=== PATIENT | female | born 1965 | race Two or more races ===

== ENCOUNTER 2023-10-18 08:25 | Outpatient (AMB) | payer OTHER, SELFPAY ==
--- NOTE | 2023-10-18 08:31 | MHC.PC.OV ---
Vital Signs 10/18/23 08:34 Height 4 ft 11 in Weight 152 lb 2 oz BMI 30.7 BP 130/70 Blood Pressure Location Lt brachial Position Sitting Pulse 70 Pulse Source Pulse Oximeter Pulse Oximetry (%) 97 Oxygen Delivery Method Room Air Intake Visit Reasons: est care Intake Note: Patient is a new patient here to establish care for HTN, Asthma. Transferring care from [facility] . Medical records have requested and have not received. 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 Parts: Present Accompanied by: Daughter Allergies bee pollen Allergy (Intermediate, Verified 10/18/23 09:02) Swelling Medication List - Last Reconciled 10/18/23 by Justice Milton MD lisinopril-hydrochlorothiazide 10-12.5 mg 1 tab PO DAILY Tobacco use date assessed: 10/18/23 Dental Screening Dental Screen Date: 10/18/23 Did you have a dental visit in the last 12 months?: No Did you have a dental problem in the last 6 months where you did not have access to dental care?: No Was dental information given to patient?: No HPI est care HPI Details 58 yr old female presents to the office to establish her care here. Patient gives history of asthma and hypertension. Currently she is taking medications for hypertension only. Requesting screening mammogram, Cologuard and Pap smear. Smokes 7 cigarettes a day. Able to function and do activities of daily living. Also complains of intermittent pain in the right leg. Uses Motrin periodically. Pain sx are after an ankle fracture. [facility] Medical History (Updated 10/18/23 @ 09:04 by Justice Milton MD) Tobacco use disorder Essential hypertension Surgical History History of tubal ligation History of ankle surgery Family History Other Substance use disorder Social History Housing: Apartment Alcohol intake: never Patient Tobacco Use Status: Current everyday Tobacco user Tobacco use type: Cigarette Cigarette Packs Per Day: 0.5 Cigarettes Per Day: 7 e-Cigarette/Vaping Use: Never Used Second Hand Smoke Exposure: Yes service: No Current occupational status: unemployed Cognitive needs: Yes (cane, walker) Hearing needs: No Vision needs: Yes (glasses) Questionnaire PHQ-9 Over the last 2 weeks, how often have you been bothered by any of the following problems? 1. Little interest or pleasure in doing things: not at all 2. Feeling down, depressed, or hopeless: several days (currently in treatment) 3. Trouble falling or staying asleep, or sleeping too much: not at all 4. Feeling tired or having little energy: not at all 5. Poor appetite or overeating: not at all 6. Feeling bad about yourself - or that you are a failure or have let yourself or your family down: not at all 7. Trouble concentrating on things, such as reading the newspaper or watching television: not at all 8. Moving or speaking so slowly that other people could have noticed. Or the opposite - being so fidgety or restless that you have been moving around a lot more than usual: not at all 9. Thoughts that you would be better off or of hurting yourself in some way: not at all Total score: 1 Depression Screening Interpretation: Negative Depression Screening Done: Yes Source: Developed by Drs. Paxton Mead, Kim James, Domingo Collins and colleagues, with an educational priya from [employer]. Thrive Questionnaire Date Thrive assessed: 10/18/23 I am a: Patient What is your living situation today?: I have a steady place to live Within the past 12 months, did the food you bought not last and you didn't have the money to get more?: Never true Within the past 12 months, did you worry whether your food would run out before you got money to buy more?: Never true Do you have trouble paying for medicines?: No Do you have trouble getting transportation to medical appointments?: No Do you have trouble paying your heating and electricity bill?: No Do you have trouble taking care of your child, family member or friend?: No Do you have trouble with day-to-day activities such as bathing, preparing meals, shopping, managing finances, etc.?: No Are you currently unemployed and looking for a job?: No Are you interested in more education?: No Currently or been in a relationship where the following occur: no concerns reported THRIVE Score: 0 AUDIT C Alcohol Use Questionnaire (AUDIT-C) 1. How often do you have a drink containing alcohol?: Never Total Score: 0 BETHANY-7 AMB Questionnaire BETHANY-7 Date BETHANY - 7 assessed: 10/18/23 Feeling nervous, anxious, or on edge: 0 = Not at all Not being able to stop or control worryin = Not at all Worrying too much about different things: 0 = Not at all Trouble relaxin = Not at all Being so restless that it is hard to sit still: 0 = Not at all Becoming easily annoyed or irritable: 0 = Not at all Feeling afraid as if something awful might happen: 0 = Not at all Total BETHANY-7 score (0-4 normal; 5-9 mild; 10-14 moderate; 15-21 severe): 0 Source: Developed by Drs. Paxton Mead, Kim James, Domingo Collins and colleagues, with an educational priya from [employer]. Physical exam (Primary Care) Care Plan Goal for BP management: Blood pressure is in range. Continue current medications. BMI result Body Mass Index 30.7 BMI Assessment/Plan discussion: High (1 lb per week weight loss suggested.) BMI High, discussed plan: lifestyle, weight reduction, dietary and physical activity Tobacco/Smoking Status: Tobacco use Status Patient Tobacco Use Status Never used Tobacco 10/18/23 08:32 Depression Screening Interpretation: Negative Currently or been in a relationship where the following occur: no concerns reported Const General: cooperative and healthy appearing Nutritional Appearance: well nourished Orientation/consciousness: patient oriented x3 Limitations: no limitations HENMT Head: Yes normal to inspection Eyes General: appearance normal, both eyes and all related structures Neck Neck: Yes normal visual inspection Chest Chest palpation & inspection: normal palpation of entire chest wall Resp Effort & Inspection: normal respiratory effort Neuro General: patient oriented x3 Assessment and Plan Assessment & Plan (1) Essential hypertension: Code(s): I10 - Essential (primary) hypertension Plan: BP in range. Continue medications at same dosage. BW has been ordered. Will call with the results (2) Screening for malignant neoplasm of cervix: Code(s): Z12.4 - Encounter for screening for malignant neoplasm of cervix (3) Tobacco use disorder: Code(s): F17.200 - Nicotine dependence, unspecified, uncomplicated Orders: Orders Basic Metabolic Panel Today I10 - Essential (primary) hypertension Lipid Panel Today I10 - Essential (primary) hypertension Liver Panel Today I10 - Essential (primary) hypertension Thyroid Stimulating Hormone Today I10 - Essential (primary) hypertension UA and rflx microscopic Today I10 - Essential (primary) hypertension MM screening mammo BI 3 Months Z12.31 - Encounter for screening mammogram for malignant neoplasm of breast Complete Blood Count no Diff Today I10 - Essential (primary) hypertension Referrals PULL OVER Referral Z12.4 - Encounter for screening for malignant neoplasm of cervix Cologuard Test Z12.11 - Encounter for screening for malignant neoplasm of colon Coding Level of Care Code Est Pt Level 4 (91596) Diagnoses Essential hypertension I10 Screening for malignant neoplasm of cervix Z12.4 Tobacco use disorder F17.200
[2023-10-18 08:34] VITALS: BP 130/70; PULSE 70; O2SAT 97; BMI 30.7
== END 2023-10-18 09:01 | disposition home or self-care (01) ==
PROVIDERS: Visit Provider Internal Medicine
DX: I10 Essential (primary) hypertension (principal); Z12.4 Encounter for screening for malignant neoplasm of cervix; F17.200 Nicotine dependence, unspecified, uncomplicated
CPT/HCPCS: 99214

== ENCOUNTER 2023-11-23 12:12 | Outpatient (REF) | payer OTHER, SELFPAY ==
[2023-11-23 12:44] LABS: Hematocrit 41.2 % (37.0-47.0); Mean Corpuscular Hemoglobin 31.3 pg (27.0-33.0); Mean Corpuscular Volume 92.2 fL (80.0-98.0); Mean Platelet Volume 10.4 fL (9.4-12.3); Platelet Count 166 X10*3/uL (160-400); Red Blood Count 4.47 X10*6/uL (4.20-5.50); Red Cell Distribution Width 13.5 % (11.0-16.0); White Blood Count 4.2 X10*3/uL (4.8-10.8)
[2023-11-23 13:19] LABS: Alanine Aminotransferase 17 U/L (0-31); Albumin Level 4.1 g/dL (3.5-5.0); Alkaline Phosphatase 61 U/L (39-117); Anion Gap 10 (12-20); Aspartate Amino Transferase 22 U/L (5-31); Bilirubin Direct 0.3 mg/dL (0.0-0.5); Bilirubin Total 0.7 mg/dL (0.0-1.0); Blood Urea Nitrogen 12 mg/dL (9-16); Calcium 9.7 mg/dL (8.4-10.2); Carbon Dioxide 31 mmol/L (22-29); Chloride 102 mmol/L (96-108); Cholesterol 170 mg/dL (<200); Estimated Glomerular Filt Rate > 60; Glucose Random 91 mg/dL (60-115); HDL Cholesterol 56 mg/dL (>40); LDL Cholesterol Calculated 97 mg/dL (<100); Potassium 4.3 mmol/L (3.3-5.1); Sodium 139 mmol/L (135-145); Total Protein 7.2 g/dL (6.5-8.0); Triglycerides 87 mg/dL (<150)
[2023-11-23 13:34] LABS: Thyroid Stimulating Hormone 1.59 uIU/mL (0.32-4.0)
[2023-11-23 14:08] LABS: Appearance Urine Clear; Color Urine Dark Yellow; Glucose Urine UA Negative (Negative); Leukocyte Esterase Urine Negative (Negative); Nitrite Urine Negative (Negative); PH 5.5 (5.0-9.0); Specific Gravity - Urine 1.025 (1.005-1.025); Urine Blood Negative (Negative); Urine Ketones Trace mg/dL (Negative); Urine Protein Negative (Neg-Trace)
== END 2023-11-23 12:13 | disposition home or self-care (01) ==
LOC: HO.LAB 12:12
PROVIDERS: PCP Internal Medicine; Visit Provider Internal Medicine
DX: I10 Essential (primary) hypertension (principal)
CPT/HCPCS: 36415; 80048; 80061; 80076; 81003; 84443; 85027

== ENCOUNTER 2023-11-23 12:54 | Outpatient (AMB) | payer OTHER, SELFPAY ==
[2023-11-23 13:12] VITALS: BP 120/70; PULSE 61; O2SAT 96; BMI 31.8
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
== END 2023-11-23 14:01 | disposition home or self-care (01) ==
PROVIDERS: Visit Provider Internal Medicine
DX: F17.200 Nicotine dependence, unspecified, uncomplicated (principal); I10 Essential (primary) hypertension
CPT/HCPCS: 99214; G2211

== ENCOUNTER 2024-01-29 11:14 | Outpatient (REF) | payer OTHER, SELFPAY ==
--- NOTE | ~2024-01-29 | MM_ITS ---
EXAMINATION: MM SCREENING DIGITAL BREAST TOMOSYNTHESIS, BILATERAL CLINICAL INFORMATION: Screening. Asymptomatic. COMPARISON: Mammography: Comparisons are made with available priors. TECHNIQUE: Digital breast tomosynthesis is performed in both the craniocaudal and mediolateral oblique views along with computer-aided detection (CAD). Synthesized 2D images are generated from the tomosynthesis. FINDINGS: There are scattered areas of fibroglandular density (ACR BI-RADS breast composition Category b). There are no significant masses, abnormal calcifications, or other abnormalities. MM/MM tomosynthesis screening BI IMPRESSION: No mammographic evidence of malignancy. ASSESSMENT: BI-RADS BI-RADS 1 - Negative RECOMMENDATION: Routine annual mammography screening. 1 year F/U This examination should not preclude the clinical evaluation of a suspicious palpable abnormality. This patient's information was entered into a reminder system with a target due date for their next mammogram. Electronically signed by: Randi Cook DO 02/22/2024 04:41 PM EDT
== END 2024-01-29 11:15 | disposition home or self-care (01) ==
LOC: HO.MAMMO 11:14
PROVIDERS: PCP Internal Medicine; Visit Provider Internal Medicine
DX: Z12.31 Encounter for screening mammogram for malignant neoplasm of breast (principal)
CPT/HCPCS: 77063; 77067

== ENCOUNTER → 2024-01-29 12:00 | Outpatient (BNV) | payer OTHER, SELFPAY | PROVIDERS: PCP Internal Medicine; Visit Provider Internal Medicine | DX: Z12.31 Encounter for screening mammogram for malignant neoplasm of breast (principal) | CPT/HCPCS: 77063; 77067 ==

== ENCOUNTER → 2024-03-06 12:52 | Outpatient (BNVA) | payer OTHER, SELFPAY | PROVIDERS: PCP Internal Medicine; Visit Provider Internal Medicine ==

== ENCOUNTER 2024-06-20 12:57 | Outpatient (AMB) | payer OTHER, SELFPAY ==
--- NOTE | 2024-06-20 13:00 | A.OFFPC_ITS ---
Vital Signs 06/20/24 13:01 Height 4 ft 11 in Weight 162 lb BMI 32.7 BP 110/76 Blood Pressure Location Lt brachial Position Sitting Pulse 86 Pulse Source Pulse Oximeter Pulse Oximetry (%) 96 Oxygen Delivery Method Room Air Intake Visit Reasons: 3mth f/u Intake Note: Patient is here to follow up on HTN. Pt decline flu shot today. 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: Present Accompanied by: Daughter Allergies bee pollen Allergy (Intermediate, Verified 06/20/24 13:01) Swelling Tobacco use date assessed: 06/20/24 Dental Screening Dental Screen Date: 06/20/24 Did you have a dental visit in the last 12 months?: No Did you have a dental problem in the last 6 months where you did not have access to dental care?: No Was dental information given to patient?: No [facility] Medical History Tobacco use disorder Essential hypertension Surgical History History of tubal ligation History of ankle surgery Family History Other Substance use disorder Social History Housing: Apartment Alcohol intake: never Patient Tobacco Use Status: Current everyday Tobacco user Tobacco use type: Cigarette Cigarette Packs Per Day: 0.25 Cigarettes Per Day: 4 e-Cigarette/Vaping Use: Never Used Second Hand Smoke Exposure: Yes service: No Current occupational status: unemployed Cognitive needs: Yes (cane, walker) Hearing needs: No Vision needs: Yes (glasses) Questionnaire PHQ-9 Over the last 2 weeks, how often have you been bothered by any of the following problems? 1. Little interest or pleasure in doing things: not at all 2. Feeling down, depressed, or hopeless: not at all 3. Trouble falling or staying asleep, or sleeping too much: not at all 4. Feeling tired or having little energy: not at all 5. Poor appetite or overeating: not at all 6. Feeling bad about yourself - or that you are a failure or have let yourself or your family down: not at all 7. Trouble concentrating on things, such as reading the newspaper or watching television: not at all 8. Moving or speaking so slowly that other people could have noticed. Or the opposite - being so fidgety or restless that you have been moving around a lot more than usual: not at all 9. Thoughts that you would be better off or of hurting yourself in some way: not at all Total score: 0 Depression Screening Interpretation: Negative Depression Screening Done: Yes Source: Developed by Drs. Paxton Mead, Kim James, Domingo Collins and colleagues, with an educational priya from [employer]. Thrive Questionnaire Date Thrive assessed: 06/20/24 I am a: Patient What is your living situation today?: I have a steady place to live Within the past 12 months, did the food you bought not last and you didn't have the money to get more?: Never true Within the past 12 months, did you worry whether your food would run out before you got money to buy more?: Never true Do you have trouble paying for medicines?: No Do you have trouble getting transportation to medical appointments?: No Do you have trouble paying your heating and electricity bill?: No Do you have trouble taking care of your child, family member or friend?: No Do you have trouble with day-to-day activities such as bathing, preparing meals, shopping, managing finances, etc.?: No Are you currently unemployed and looking for a job?: No Are you interested in more education?: No Currently or been in a relationship where the following occur: No concerns reported THRIVE Score: 0 AUDIT C Alcohol Use Questionnaire (AUDIT-C) 1. How often do you have a drink containing alcohol?: Never Total Score: 0 BETHANY-7 AMB Questionnaire BETHANY-7 Date BETHANY - 7 assessed: 06/20/24 Feeling nervous, anxious, or on edge: 0 = Not at all Not being able to stop or control worryin = Not at all Worrying too much about different things: 0 = Not at all Trouble relaxin = Not at all Being so restless that it is hard to sit still: 0 = Not at all Becoming easily annoyed or irritable: 0 = Not at all Feeling afraid as if something awful might happen: 0 = Not at all Total BETHANY-7 score (0-4 normal; 5-9 mild; 10-14 moderate; 15-21 severe): 0 Source: Developed by Drs. Paxton Mead, Kim James, Domingo Collins and colleagues, with an educational priya from [employer]. Physical exam (Primary Care) Vital Signs: Last Vital Signs Pulse 86 06/20/24 13:01 BP 110/76 06/20/24 13:01 Pulse Ox 96 06/20/24 13:01 Oxygen Delivery Method Room Air 06/20/24 13:01 BMI result Body Mass Index 32.7 Tobacco/Smoking Status: Tobacco use Status Tobacco use date assessed 06/20/24 06/20/24 13:03 Patient Tobacco Use Status Current everyday Tobacco 06/20/24 13:03 Tobacco use type Cigarette 06/20/24 13:03 e-Cigarette/Vaping Use Never Used 06/20/24 13:03 PHQ-9: PHQ-9 Score PHQ-9: Total score 0 06/20/24 13:03 Depression Screening Interpretation: Negative Thrive Assessment: Date of Thrive Assessment Date Thrive assessed 06/20/24 06/20/24 13:03 Currently or been in a relationship where the following occur: No concerns reported Const General: cooperative and healthy appearing Nutritional Appearance: well nourished Orientation/consciousness: patient oriented x3 Limitations: no limitations HENMT Head: Yes normal to inspection Eyes General: appearance normal, both eyes and all related structures Neck Neck: Yes normal visual inspection Chest Chest palpation & inspection: normal palpation of entire chest wall Resp Effort & Inspection: normal respiratory effort Neuro General: patient oriented x3 Coding Level of Care Code Est Pt Level 4 (39987) Complex EM visit Add On G2211 Diagnoses Essential hypertension I10 Tobacco use disorder F17.200 Assessment & Plan Assessment & Plan (1) Essential hypertension: Code(s): I10 - Essential (primary) hypertension Category: Medical Plan: BP is stable, continue current medications at same dosage. (2) Tobacco use disorder: Code(s): F17.200 - Nicotine dependence, unspecified, uncomplicated Category: Medical Plan: Counselled to quit smoking done. Plan History of Present Illness The patient is a 59-year-old female presenting with no acute concerns at this time but is here for a routine wellness visit. Her past medical history includes hypertension, for which she is currently on medication. Her last laboratory work was performed in November, with results reported as within normal limits. The patient did not report any significant health issues at this appointment, maintaining her current health status. She has not undergone a colonoscopy and expressed a willingness to participate in non-invasive colon cancer screening via Cologuard. She reportedly had a mammogram recently, although further details or results were not discussed. Social History - Family Status: Lives with family, including daughter, as inferred from presence during the visit. - There were no other social determinants of health discussed during the visit. Review of Systems - General: Denies any new health problems. Physical Exam General: Cooperative and healthy appearing Nutritional Appearance: Well nourished Orientation/consciousness: Patient oriented x3 Limitations: No limitations Head: Normal to inspection General: Appearance normal, both eyes and all related structures Neck: Normal visual inspection Chest: Normal palpation of entire chest wall Respiratory: Normal respiratory effort Neurology: Patient oriented x3 Results - Tests and Diagnostics: The patient has had a recent mammogram, but results were not discussed further. Cologuard test will be ordered. Plan - Order Cologuard for colon cancer screening. - Arrange fasting blood work to be performed. - Encourage continued compliance with antihypertensive medication. - Review results and follow-up in six months. Patient was informed and verbally consented to the use of an ambient scribe for clinic note documentation during this visit. Discussion Notes During the visit, I discussed with the patient the importance of ongoing preventive care, including repeat laboratory work twice a year and continued adherence to her blood pressure medication. I informed her about the Cologuard testing process as a non-invasive alternative for colon cancer screening, noting that a kit will be sent to her home and she will need to mail back a sample. We confirmed her recent mammogram, and I instructed her on the need for fasting before her blood work. We agreed to reconvene for a follow-up in six months. Patient Instructions - Obtain fasting blood work as discussed. - Undergo Cologuard test for colon cancer screening when the kit arrives. - Continue taking your blood pressure medication as prescribed. - Schedule a follow-up appointment in six months. - Maintain regular preventive health measures as discussed. Orders: Orders Basic Metabolic Panel Today F17.200 - Nicotine dependence, unspecified, uncomplicated, I10 - Essential (primary) hypertension Lipid Panel Today F17.200 - Nicotine dependence, unspecified, uncomplicated, I10 - Essential (primary) hypertension Complete Blood Count no Diff Today F17.200 - Nicotine dependence, unspecified, uncomplicated, I10 - Essential (primary) hypertension Liver Panel Today F17.200 - Nicotine dependence, unspecified, uncomplicated, I10 - Essential (primary) hypertension Thyroid Stimulating Hormone Today F17.200 - Nicotine dependence, unspecified, uncomplicated, I10 - Essential (primary) hypertension UA and rflx microscopic Today F17.200 - Nicotine dependence, unspecified, uncomplicated, I10 - Essential (primary) hypertension Referrals Cologuard Test Z12.11 - Encounter for screening for malignant neoplasm of colon
[2024-06-20 13:01] VITALS: BP 110/76; PULSE 86; O2SAT 96; BMI 32.7
== END 2024-06-20 14:17 | disposition home or self-care (01) ==
PROVIDERS: PCP Internal Medicine; Visit Provider Internal Medicine
DX: I10 Essential (primary) hypertension (principal); F17.200 Nicotine dependence, unspecified, uncomplicated

== ENCOUNTER → 2024-06-20 12:57 | Outpatient (BNVA) | payer OTHER, SELFPAY | PROVIDERS: PCP Internal Medicine; Visit Provider Internal Medicine | DX: I10 Essential (primary) hypertension (principal); F17.200 Nicotine dependence, unspecified, uncomplicated; Z71.6 Tobacco abuse counseling | CPT/HCPCS: 96127; 99212 ==